=== PATIENT | female | born 1995 | race Caucasian/White ===

== ENCOUNTER 2017-03-07 14:07 | Emergency (ER) | payer OTHER ==
[2017-03-07 14:07] VITALS: BMI 27.0
[2017-03-07 14:31] VITALS: BP 123/78; PULSE 81; RESP 16; TEMP 98.5
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
[2017-03-07 15:36] VITALS: O2SAT 99
== END 2017-03-07 15:36 | disposition home or self-care (01) ==
LOC: ED 14:07
DX: S90.122A Contusion of left lesser toe(s) without damage to nail, initial encounter (principal); W23.0XXA Caught, crushed, jammed, or pinched between moving objects, initial encounter
CPT/HCPCS: 73660; 96372; 99283; J1885